=== PATIENT | male | born 1960 | race Caucasian/White ===

== ENCOUNTER 2018-07-07 20:18 | Emergency (ER) | payer MEDICARE, OTHER ==
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
[2018-07-07 20:41] VITALS: BP 128/97
--- NOTE | 2018-07-07 21:44 | XRay Report ---
PROCEDURE: XR SPINE LUMBOSACRAL 2-3V TECHNIQUE: Lumbar spine radiographs, three views. HISTORY: LOWER BACK PAIN COMPARISONS: None . FINDINGS: Alignment: Normal . Vertebral body heights/Disk spaces: Normal . Fracture(s): None . Facets: Normal . Bone mineralization: Normal . IMPRESSION: Normal Examination . This document is electronically signed by Jassi Martínez MD., Jul 07 2018 09:41:58 PM ET
--- NOTE | 2018-07-07 21:47 | XRay Report ---
PROCEDURE: XR HIP 2-3V LT TECHNIQUE: Left hip radiograph, one view. HISTORY: HIP pain COMPARISONS: None . FINDINGS: Fracture (s) and/or Dislocation(s): None . Joint space(s): Normal . Soft tissues: Normal . Bone mineralization: Normal . Foreign bodies: None . IMPRESSION: Normal Examination . This document is electronically signed by Jassi Martínez MD., Jul 07 2018 09:45:39 PM ET
== END 2018-07-07 22:30 | disposition left against medical advice (07) ==
LOC: ED 20:18
DX: R51 Headache (principal); Z53.21 Procedure and treatment not carried out due to patient leaving prior to being seen by health care provider
CPT/HCPCS: 72100